=== PATIENT | male | born 1990 | race American Indian/Alaskan Native ===

== ENCOUNTER 2018-03-24 11:02 | Emergency (ER) | payer OTHER ==
[~2018-03-24] VITALS: Ht 177.8 cm; Wt 86.2 kg
[~2018-03-24 11:02] MED LIST: ZOFRAN ODT4 MG PO
== END 2018-03-24 13:01 | disposition home or self-care (01) ==
LOC: ED 11:02
PROC: 0HQ0XZZ Repair Scalp Skin, External Approach (ICD-10-PCS; principal; 2018-03-24)
DX: S01.01XA Laceration without foreign body of scalp, initial encounter (principal); S01.81XA Laceration without foreign body of other part of head, initial encounter; Z88.5 Allergy status to narcotic agent; Z23 Encounter for immunization; V50.9XXA Unspecified occupant of pick-up truck or van injured in collision with pedestrian or animal in traffic accident, initial encounter
CPT/HCPCS: 12032; 90471; 90715; 99283

== ENCOUNTER 2018-11-10 07:42 | Emergency (ER) | payer OTHER ==
[~2018-11-10] VITALS: Ht 177.8 cm; Wt 86.2 kg
== END 2018-11-10 08:05 | disposition home or self-care (01) ==
LOC: ED 07:42
DX: S51.811A Laceration without foreign body of right forearm, initial encounter (principal)

== ENCOUNTER 2021-07-24 06:55 | Emergency (ER) | payer OTHER ==
[~2021-07-24] VITALS: Ht 177.8 cm; Wt 106.0 kg
[2021-07-24] MEDS ORDERED: ADVIL200 MG PO (07:11)
[2021-07-24] MEDS ORDERED: NAPROSYN500 MG PO (07:40)
[2021-07-24] MEDS ORDERED: CRUTCH1 EACH (07:43)
== END 2021-07-24 07:48 | disposition home or self-care (01) ==
LOC: ED 06:55
DX: S83.91XA Sprain of unspecified site of right knee, initial encounter (principal); X58.XXXA Exposure to other specified factors, initial encounter; Z88.5 Allergy status to narcotic agent
CPT/HCPCS: 99283

== ENCOUNTER 2021-12-28 10:34 | Inpatient (IN) | payer OTHER ==
[~2021-12-28] VITALS: Ht 177.8 cm; Wt 90.0 kg
--- NOTE | ~2021-12-28 | OR ---
[facility] [address], [place] [address] Draft DATE OF OPERATION: 12/30/2021 SURGEON: Jhonny Petty MD PREOPERATIVE DIAGNOSIS: Persistent bloody diarrhea x2 weeks. POSTOPERATIVE DIAGNOSIS: Pancolitis consistent with ulcerative colitis. PROCEDURE: Total colonoscopy to cecum with biopsy of proximal ileum, cecum, right transverse, sigmoid, and rectum. ANESTHESIA: Intravenous sedation, propofol infusion, Hector Jones CRNA INDICATIONS: This 31-year-old dark-skinned man, who was admitted to the hospital on 2021, with progressive bloody diarrhea. 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 He was found to have acute renal insufficiency with a creatinine greater than 2.57 and a hematocrit of 49.2, subsequently found to be 37.2. Rehydration has improved his creatinine to 1.60 and today now 1.40. Stool studies have been obtained, but are not yet available. He still has some bloody diarrhea. He was treated with no antibiotics nor any steroids pending cultures and additional diagnostic maneuvers. He is clinically much better now, having been fluid resuscitated and is now to undergo colonoscopy to better characterize his problem. The risk of bleeding, infection, perforation, and so forth were reviewed with him in detail. He understands and wished to proceed. FINDINGS: Pancolitis was noted most likely consistent with ulcerative colitis. The ileum could not be fully intubated, but the biopsy forceps was able to be insinuated into the ileum and I presumed that the ileum will be normal, though biopsies results were pending. The remaining colon showed renyvuaa-ov-jmkyac ulcerative colitis. There was no evidence of ischemic change. No malignancy. No diverticula or other abnormality. DESCRIPTION OF PROCEDURE: PATIENT NAME: ASHLI COLLAZO OPERATIVE REPORT DATE OF : 88 REPORT #: [id number] PHYSICIAN: JHONNY PETTY MD PCP: [facility] REPORT IS CONFIDENTIAL AND NOT TO BE RELEASED WITHOUT AUTHORIZATION [facility] [address], [place] [address] Draft The patient was brought to the endoscopy suite and placed in the lateral decubitus position, given intravenous sedation with propofol infusional technique. Digital rectal examination was normal. An Olympus video colonoscope was passed in the rectum and manipulated throughout the colon immediately noting colitis throughout. The scope was ultimately manipulated to the cecum. The ileocecal valve was identified as normal. Some attempt to intubate the ileum was undertaken, but it was not easily forthcoming. On that basis, a biopsy forceps was insinuated into the distal part of the ileum and blind biopsies obtained. The scope was withdrawn to the cecum and biopsies taken of the cecum and withdrawal of scope undertaken with biopsies throughout. The scope was removed. At conclusion, after biopsying several areas throughout the colon including the rectum, all of which were involved with colitis. The patient was taken to the recovery room in good condition. CONCLUDING DIAGNOSIS: Pancolitis almost certainly ulcerative colitis. PLAN: We will initiate steroid therapy, mesalamine, Flagyl antibiotic, PPI medication, anticipating a taper of the steroid and definitive ongoing treatment as appropriate. Jhonny Petty MD JM/MODL /[id number] cc: [facility] Kalina Jimenez MD Copies: [facility] KALINA JIMENEZ MD ~ PATIENT NAME: ASHLI COLLAZO OPERATIVE REPORT DATE OF : 88 REPORT #: [id number] PHYSICIAN: JHONNY PETTY MD PCP: [facility] REPORT IS CONFIDENTIAL AND NOT TO BE RELEASED WITHOUT AUTHORIZATION
[~2021-12-28 10:34] MED LIST changes: +ADVIL200 MG PO; +CRUTCH1 EACH; +NAPROSYN500 MG PO
[2021-12-30] MEDS ORDERED: OMEPRAZOLE20 MG PO (11:29)
[2021-12-30] MEDS ORDERED: METRONIDAZOLE250 MG PO (11:29)
[2021-12-30] MEDS ORDERED: MESALAMINE800 MG PO (11:29)
[2021-12-30] MEDS ORDERED: PREDNISONE10 MG PO (11:29)
--- NOTE | 2021-12-30 11:41 | CONS ---
[facility] [address], [place] [address] Signed DATE OF CONSULTATION: 12/28/2021 REQUESTING PHYSICIAN: Dr. Jimenez. PROBLEM: Bloody diarrhea x2 weeks and acute renal injury. 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 He has had for the past 2 weeks significant bloody diarrhea not generally associated with severe abdominal pain. Initially, he had 4 to 5 bowel movements a day, but this has become more progressive over time. The bleeding has not relented and he has become weak and ill and on that basis, presented to the emergency room today. He is originally evaluated by Dr. Agrawal and subsequently Dr. Jimenez. He was noted to have an elevated creatinine of approximately 2.57. He has had no associated abdominal pain particularly and no nausea or vomiting. He has no known family history of colon cancer or inflammatory bowel disease. The patient himself has never had colon problems in the past. He denies any other family members, who have similar illness in his relatives. PAST MEDICAL HISTORY: Includes allergy to hydrocodone. He has no medical history for surgery. SOCIAL HISTORY: He does not smoke or use alcohol. He does smoke marijuana. Although not , he does have a live-in female partner and they have 3 children together. They have been together many years apparently. REVIEW OF SYSTEMS: He denies any shortness of breath or chest pain. He denies abdominal pain or hematemesis. He denies any anal pain. PHYSICAL EXAMINATION: GENERAL: This is a pleasant, black appearing man, who looks to be in no distress at this time. BMI is 28.5. HEENT: Trachea is midline. CHEST: Shows normal respiratory excursion without wheeze or rhonchi. HEART: Regular. ABDOMEN: Nondistended and soft. Palpation throughout shows no sign of mass or ascites. Electronically Signed By: JHONNY PETTY MD 12/30/21 1141 PATIENT NAME: ASHLI COLLAZO CONSULTATION DATE OF : 88 REPORT #: [id number] PHYSICIAN: JHONNY PETTY MD PCP: [facility] REPORT IS CONFIDENTIAL AND NOT TO BE RELEASED WITHOUT AUTHORIZATION [facility] [address], [place] [address] Signed EXTREMITIES: Showed no clubbing, cyanosis, or edema. LABORATORY STUDIES: Showed a white count of 6.4, hematocrit 49, platelets 374,000. Chem profile is notable for a creatinine of 2.57, bilirubin of 1.4. Liver enzymes normal. Total protein 9.1. Creatine kinase 707, globulin 4.6 (elevated), amylase not obtained. Urinalysis shows specific gravity 1.025, urine protein is 100, ketones small, white cells 4 to 6 per high-power field, red cells 2 to 3 per high-power field. There were rare urinary bacteria and 1+ hyaline casts. Serology shows negative coronavirus and influenza. C difficile by PCR are still pending. ASSESSMENT: The patient has had 2 weeks essentially bloody diarrhea culminating in significant dehydration and resultant elevated creatinine level. He does not have associated pain with the problem. Given his young age, the possibility of inflammatory bowel disease is considered high. He has had no antibiotic exposure or other family members or people in his immediate work environment who had a similar problem. Stool studies are pending it appears. Consideration is made for colonoscopy on the basis of his symptoms to better characterize the etiology of his diarrhea, specifically inflammatory bowel disease or other similar abnormality. Such a finding would initiate immediate treatment. It was noted that he has had some joint swelling in the past few weeks as well, though it is currently not a dominant issue. Such findings often go along with inflammatory bowel disease. PLAN: He is undergoing fluid resuscitation and other measures and for the time being, I would recommend re-evaluation tomorrow. Consideration might be made for colonoscopy even if limited to more surely confirm the diagnosis, which would additionally guide therapy. If inflammatory bowel disease were to be noted, an intravenous steroids would be appropriate in addition to topical anti-inflammatory (mesalamine). Currently, he is on Tylenol only and Zofran, but no anti-inflammatory medication or antibiotics. Specific therapy will large depend on the underlying cause of his problem andtherefore histologic examination of colonic mucosa as well as clinical impression will be the most useful to direct specific therapy. We discussed this as well. We will be reviewing his lab studies in the morning, particularly to assess for improvement of his creatinine and assess further regarding persistent or ongoing bleeding with diarrhea. In short , I believe colonoscopy will be advisable and appropriate to better characterize apparent colonic abnormality. Discussed all this with the patient and had reviewed it with Dr. Jimenez previously. For now, we will not initiate any bowel prep until hydration status has been maximized. Electronically Signed By: JHONNY PETTY MD 12/30/21 1141 PATIENT NAME: ASHLI COLLAZO CONSULTATION DATE OF : 88 REPORT #: [id number] PHYSICIAN: JHONNY PETTY MD PCP: [facility] REPORT IS CONFIDENTIAL AND NOT TO BE RELEASED WITHOUT AUTHORIZATION [facility] [address] [place], [place] [address], [place] [address] Signed MD HERLINDA Harrison/MODL /[id number] cc: Kalina Jimenez MD Copies: KALINA JIMENEZ MD ~ Electronically Signed By: JHONNY PETTY MD 12/30/21 1141 PATIENT NAME: ASHLI COLLAZO CONSULTATION DATE OF : 88 REPORT #: [id number] PHYSICIAN: JHONNY PETTY MD PCP: [facility] REPORT IS CONFIDENTIAL AND NOT TO BE RELEASED WITHOUT AUTHORIZATION
== END 2021-12-30 12:30 | disposition home or self-care (01) | DRG 386 ==
LOC: ED 10:34 → MS 12:56
PROVIDERS: Surgery; ADMIT Internal Medicine; ATTEND Internal Medicine
PROC: 0DBL8ZX Excision of Transverse Colon, Via Natural or Artificial Opening Endoscopic, Diagnostic (ICD-10-PCS; 2021-12-30)
PROC: 0DBN8ZX Excision of Sigmoid Colon, Via Natural or Artificial Opening Endoscopic, Diagnostic (ICD-10-PCS; 2021-12-30)
PROC: 0DBP8ZX Excision of Rectum, Via Natural or Artificial Opening Endoscopic, Diagnostic (ICD-10-PCS; 2021-12-30)
PROC: 0DBB8ZX Excision of Ileum, Via Natural or Artificial Opening Endoscopic, Diagnostic (ICD-10-PCS; 2021-12-30)
PROC: 0DBH8ZX Excision of Cecum, Via Natural or Artificial Opening Endoscopic, Diagnostic (ICD-10-PCS; principal; 2021-12-30 10:00)
DX: K51.00 Ulcerative (chronic) pancolitis without complications (principal); N17.9 Acute kidney failure, unspecified; E87.1 Hypo-osmolality and hyponatremia; M62.82 Rhabdomyolysis; Z20.822 Contact with and (suspected) exposure to COVID-19; R63.4 Abnormal weight loss; T67.5XXA Heat exhaustion, unspecified, initial encounter; E87.6 Hypokalemia; Z68.27 Body mass index [BMI] 27.0-27.9, adult; Z88.6 Allergy status to analgesic agent; X32.XXXA Exposure to sunlight, initial encounter; Y93.H3 Activity, building and construction; Y99.0 Civilian activity done for income or pay
CPT/HCPCS: 36415; 80053; 81001; 82553; 82565; 82570; 83735; 84132; 84300; 84520; 84550; 85025; 87045; 87493; 87502; A9270; C9803; J2001; J2405; J2704; J3475; J3480; J7030; J7120; J7121; J7512; U0003